=== PATIENT | female | born 1990 | race Caucasian/White ===

== ENCOUNTER 2016-04-04 17:48 | Emergency (ER) | payer SELFPAY ==
[2016-04-04 18:47] VITALS: BP 127/70
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
== END 2016-04-04 21:16 | disposition home or self-care (01) ==
LOC: ER 17:48
PROC: 0H96XZZ Drainage of Back Skin, External Approach (ICD-10-PCS; principal; 2016-04-04)
DX: L02.212 Cutaneous abscess of back [any part, except buttock and flank] (principal); Z91.040 Latex allergy status
CPT/HCPCS: 99283

== ENCOUNTER 2016-04-07 13:02 | Emergency (ER) | payer SELFPAY ==
[2016-04-07] MEDS ORDERED: OXYCODONE-ACETAMINOPHEN 5-325 MG TABLET PO ONE (13:31)
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
[2016-04-07 13:35] VITALS: BP 115/69
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
[2016-04-07] MEDS ORDERED: CLINDAMYCIN PHOSPHATE INJ 300 MG/2 ML SDV IM ONE (16:48)
== END 2016-04-07 17:00 | disposition home or self-care (01) ==
LOC: ER 13:02
DX: L02.212 Cutaneous abscess of back [any part, except buttock and flank] (principal); L03.312 Cellulitis of back [any part except buttock and flank]; Z98.890 Other specified postprocedural states; Z91.040 Latex allergy status; Z88.0 Allergy status to penicillin
CPT/HCPCS: 99282

== ENCOUNTER → 2016-06-13 | Outpatient (CLI) | payer OTHER ==
[2016-06-13 08:02] LABS: ABSOLUTE EOSINOPHILS # (AUTO) 0.2 10^3/uL (0.0-0.6); ABSOLUTE LYMPHOCYTES (AUTO) 2.7 10^3/uL (0.5-4.7); ABSOLUTE MONOCYTES (AUTO) 0.3 10^3/uL (0.1-1.4); ABSOLUTE NEUT (AUTO) 3.1 10^3/uL (1.7-8.2); BASOPHILS % (AUTO) 0.3 % (0-2); HEMATOCRIT 39.3 % (36.0-47.0); HEMOGLOBIN 13.9 g/dL (12.0-15.5); HGB HCT DIFFERENCE 2.4; LYMPHOCYTES % (AUTO) 42.6 % (13-45); MEAN CORPUSCULAR HEMOGLOBIN 29.8 pg (27.0-33.4); MEAN CORPUSCULAR HGB CONC 35.2 g/dL (32.0-36.0); MEAN CORPUSCULAR VOLUME 84 fl (80-97); MONOCYTES % (AUTO) 4.5 % (3-13); RED BLOOD COUNT 4.66 10^6/uL (3.72-5.28); RED CELL DISTRIBUTION WIDTH 13.5 % (11.5-14.0); SEGMENTED NEUTROPHILS % (AUTO) 49.6 % (42-78); WHITE BLOOD COUNT 6.3 10^3/uL (4.0-10.5)
[2016-06-13 08:27] LABS: ALANINE AMINOTRANSFERASE 95 U/L (9-52); ALBUMIN 4.3 g/dL (3.5-5.0); ALKALINE PHOSPHATASE 158 U/L (38-126); ANION GAP 12 (5-19); ASPARTATE AMINO TRANSFERASE 80 U/L (14-36); BILIRUBIN,DIRECT 0.4 mg/dL (0.0-0.4); BILIRUBIN,TOTAL 1.1 mg/dL (0.2-1.3); BLOOD UREA NITROGEN 12 mg/dL (7-20); CALCIUM 9.9 mg/dL (8.4-10.2); CARBON DIOXIDE 28 mmol/L (22-30); CHLORIDE 100 mmol/L (98-107); CHOLESTEROL 243.63 mg/dL (0-200); CREATININE RESULT 0.61 mg/dL (0.52-1.25); Direct HDL 39 mg/dL (>40); GLUCOSE 278 mg/dL (75-110); POTASSIUM 4.6 mmol/L (3.6-5.0); SODIUM 139.9 mmol/L (137-145); TOTAL PROTEIN 7.7 g/dL (6.3-8.2); URIC ACID 3.9 mg/dL (2.5-6.2)
[2016-06-13 08:38] LABS: DIRECT LDL 129 mg/dL (<100)
[2016-06-13 08:43] LABS: TRIGLYCERIDES 620 mg/dL (<150)
[2016-06-14 07:44] LABS: MUMPS IGG AB 49.5 AU/mL (Immune >10.9); RUBEOLA IGG AB <25.0 AU/mL (Immune >29.9); VARICELLA ZOSTER IGG AB 288 index (Immune >165)
== END ==
LOC: OD 07:05
DX: E11.9 Type 2 diabetes mellitus without complications (principal)
CPT/HCPCS: 36415; 80053; 80061; 83036; 84443; 84550; 85025; 86317; 86735; 86762; 86765; 86787

== ENCOUNTER → 2016-06-24 | Outpatient (CLI) | payer OTHER | LOC: CCC 16:13 | DX: E05.90 Thyrotoxicosis, unspecified without thyrotoxic crisis or storm (principal) | CPT/HCPCS: 36415; 84436; 84443 ==

== ENCOUNTER → 2016-09-08 | Outpatient (CLI) | payer OTHER ==
--- NOTE | 2016-09-09 10:52 | RADIOLOGY REPORT (SQ) ---
EXAM DESCRIPTION: NM THYROID SCAN AND UPTAKE COMPLETED DATE/TIME: 09/09/2016 9:23 am REASON FOR STUDY: HYPERTHYROIDISM (E05.90) E05.90 THYROTOXICOSIS, UNSP WITHOUT THYROTOXIC CRISIS OR STO COMPARISON: None. RADIONUCLIDE AND DOSE: 304 microcuries [id number] The route of agent administration: Oral ADDITIONAL DRUGS AND DOSES: None. TECHNIQUE: Iodine uptake was measured at 4 and 24 hours. Images of the neck were acquired. LIMITATIONS: None. FINDINGS: 4 HOUR UPTAKE RADIO-IODINE: 10.6%. Normal Range of 5-20% [facility] Normal Range of 5-15% [facility] Normal Range of 5-15% [facility] 24 HOUR UPTAKE RADIO-IODINE: 25.7%. Normal Range of 7-35% [facility] Normal Range of 8-35% [facility] Normal Range of 15-30% [facility] SCAN: There is a somewhat heterogeneous distribution of tracer activity in the right thyroid lobe and I cannot exclude non functioning nodules or thyroid cysts. A thyroid ultrasound may be of value for further evaluation OTHER: No other significant finding. IMPRESSION: There is a somewhat heterogeneous distribution of tracer activity in the right thyroid l obe as noted above. I cannot exclude non functioning nodules or thyroid cysts. A thyroid ultrasound may be of value for further evaluation. NORMAL UPTAKE OF IODINE. TECHNICAL DOCUMENTATION: JOB ID: [id number] [employer]- All Rights Reserved
== END ==
LOC: RAD 08:31
PROVIDERS: ATTEND Physician Assistant
DX: E05.90 Thyrotoxicosis, unspecified without thyrotoxic crisis or storm (principal)
CPT/HCPCS: 78014; A9516

== ENCOUNTER → 2016-09-16 | Outpatient (CLI) | payer OTHER ==
--- NOTE | 2016-09-16 13:57 | WOMENS IMAGING REPORT ---
EXAM DESCRIPTION: U/S THYROID/ST TIS HEAD NECK COMPLETED DATE/TIME: 09/16/2016 12:38 pm REASON FOR STUDY: THYROTOXICOSIS; E05.90 E05.90 THYROTOXICOSIS, UNSP WITHOUT THYROTOXIC CRISIS OR S TO COMPARISON: Nuclear medicine thyroid scan dated 09/08/2016. TECHNIQUE: Dynamic and static fermin-scale images acquired of the thyroid gland. Selected additional c olor/power Doppler images recorded. All images stored to PACS. LIMITATIONS: None. FINDINGS: RIGHT LOBE: Enlarged, measuring 5.3 cm. Heterogenous echotexture. Numerous ill-defined n odular densities throughout. No dominant mass. LEFT LOBE: Enlarged, measuring 4.5 cm. Heterogenous echotexture. Numerous ill-defined nodular densi ties throughout. No dominant mass. ISTHMUS: Normal size. Heterogenous echotexture. No cystic or solid masses. OTHER: No other significant finding. IMPRESSION: ENLARGED THYROID WITH HETEROGENOUS ECHOTEXTURE AND NUMEROUS ILL-DEFINED NODULAR DENSITIE S. NO DOMINANT MASS. FINDINGS LIKELY DUE TO MULTINODULAR GOITER. TECHNICAL DOCUMENTATION: JOB ID: [id number]- All Rights Reserved
== END ==
LOC: WI 10:40
PROVIDERS: ATTEND Physician Assistant
DX: E05.00 Thyrotoxicosis with diffuse goiter without thyrotoxic crisis or storm (principal)
CPT/HCPCS: 76536

== ENCOUNTER 2017-03-17 09:51 | Emergency (ER) | payer OTHER ==
[2017-03-17] MEDS ORDERED: PROCHLORPERAZINE EDISYLATE INJ 10 MG/2 ML VIAL IV ONE (10:51)
[2017-03-17] MEDS ORDERED: KETOROLAC TROMETHAMINE INJ/PF 30 MG/1 ML SDV IV ONE (10:51)
[2017-03-17] MEDS ORDERED: DIPHENHYDRAMINE HCL 50 MG/ML VIAL IV ONE (10:51)
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
[2017-03-17 12:31] VITALS: BP 135/77
== END 2017-03-17 12:30 | disposition home or self-care (01) ==
LOC: ER 09:51
DX: R51 Headache (principal); E11.9 Type 2 diabetes mellitus without complications
CPT/HCPCS: 99283; 96374; 96375; 82962; J1200; J1885; J0780

== ENCOUNTER 2018-04-22 10:00 | Emergency (ER) | payer MEDICAID, OTHER ==
[2018-04-22 10:07] VITALS: BP 145/81
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
== END 2018-04-22 10:23 | disposition home or self-care (01) ==
LOC: ER 10:00
DX: G43.909 Migraine, unspecified, not intractable, without status migrainosus (principal); E11.9 Type 2 diabetes mellitus without complications; Z91.040 Latex allergy status; Z88.0 Allergy status to penicillin
CPT/HCPCS: 99283

== ENCOUNTER → 2018-07-02 | Outpatient (CLI) | payer MEDICAID | LOC: LAB 17:32 | PROVIDERS: ATTEND Nurse Practitioner Acute Care | DX: R30.0 Dysuria (principal) | CPT/HCPCS: 87086; 87088; 87186 ==